=== PATIENT | female | born 1950 | race Hispanic/Latino ===

== ENCOUNTER 2019-08-15 07:35 | Emergency (ER) | payer BC, MEDICARE ==
[2019-08-15] MEDS ORDERED: LORazepam 2 MG/ML VIAL IV ONE (08:21)
--- NOTE | 2019-08-15 08:27 | Emergency Department Report ---
ED Head Trauma HPI - General Chief complaint: Head Injury Stated complaint: HEAD INJURY Time Seen by Provider: 08/15/19 08:07 Source: patient Mode of arrival: Ambulatory Limitations: No Limitations - History of Present Illness Initial comments: Patient is 69 years old female with history of migraine. Patient presented to the ER complaining of headache. Patient stated that she fell and hit the back of her head on her office desk edge. Patient stated that she was reaching to grab something and her chair slide underneath her. Patient stated that she did well initially but few hours later she started having headache, nausea but no vomiting. Patient stated that she examine her pupils and found that it is an equal. She called her neurologist who advised her to not to go to the ER and stay home and do a concussion precaution for 24 hours. Patient stated that she did not feel better and she started having some difficulty keeping her balance s o she did a telehealth and seen by a nurse practitioner who recommended MRI. Patient came today for MRI of the brain. Patient currently rated her pain as 3 out of 10. Patient declined pain medicine offer but she is claustrophobic and is okay with Ativan. Complaint: head injury -: days(s) (13) Location: occipital Loss of Consciousness: no Previous Trauma to this Area: No Place: home Radiation: none Severity scale (0 -10): 3 Consistency: constant Other Injuries: none - Related Data Previous Rx's Medication Instructions Recorded Last Taken Type HYDROcodone/APAP 5-325 [[place] 1 each PO Q6HR PRN #14 tablet 08/15/19 Unknown Rx 5/325] Ondansetron [Zofran Odt] 4 mg PO Q8HR PRN #14 tab.rapdis 08/15/19 Unknown Rx Allergies/Adverse reactions: Allergies Allergy/AdvReac Type Severity Reaction Status Date / Time lamotrigine [From Lamictal] Allergy Hives Verified 08/15/19 07:41 ED Review of Systems ROS: Stated complaint: HEAD INJURY Other details as noted in HPI Comment: All other systems reviewed and negative Constitutional: denies: chills, fever Respiratory: denies: cough, shortness of breath Cardiovascular: denies: chest pain Gastrointestinal: nausea. denies: abdominal pain, vomiting, diarrhea, constipation, hematemesis, melena Musculoskeletal: denies: back pain Neurological: headache. denies: weakness, numbness, paresthesias, confusion, abnormal gait ED Past Medical Hx - Past Medical History Previous Medical History?: Yes Additional medical history: UC - Social History Smoking Status: Never Smoker Substance Use Type: None - Medications Home Medications: Home Medications Medication Instructions Recorded Confirmed Last Taken Type HYDROcodone/APAP 5-325 [[place] 1 each PO Q6HR PRN #14 tablet 08/15/19 Unknown Rx 5/325] Ondansetron [Zofran Odt] 4 mg PO Q8HR PRN #14 tab.rapdis 08/15/19 Unknown Rx ED Physical Exam - General Limitations: No Limitations General appearance: alert, in no apparent distress - Head Head exam: Present: atraumatic, normocephalic, normal inspection - Eye Eye exam: Present: normal appearance, PERRL - ENT ENT exam: Present: normal exam, normal orophraynx, mucous membranes moist - Neck Neck exam: Present: normal inspection, full ROM. Absent: tenderness, meningismus, lymphadenopathy, thyromegaly - Respiratory Respiratory exam: Present: normal lung sounds bilaterally - Cardiovascular Cardiovascular Exam: Present: regular rate, normal rhythm, normal heart sounds - GI/Abdominal GI/Abdominal exam: Present: soft, normal bowel sounds. Absent: distended, tenderness, guarding, rebound, rigid, organomegaly, mass, bruit, pulsatile mass, hernia - Extremities Exam Extremities exam: Present: normal inspection, full ROM, normal capillary refill. Absent: tenderness, pedal edema, calf tenderness - Back Exam Back exam: Present: normal inspection, full ROM. Absent: CVA tenderness (R), CVA tenderness (L), muscle spasm, paraspinal tenderness, vertebral tenderness - Neurological Exam Neurological exam: Present: alert, oriented X3, CN II-XII intact, normal gait, reflexes normal. Absent: abnormal gait, motor sensory deficit - Psychiatric Psychiatric exam: Present: normal mood - Skin Skin exam: Present: warm, intact, normal color ED Course Vital Signs 08/15/19 08/15/19 07:41 09:34 Temperature 97.9 F Pulse Rate 60 Respiratory 16 14 Rate Blood Pressure 150/63 O2 Sat by Pulse 100 96 Oximetry - Lab Data Result diagrams: 08/15/19 08:44 Lab Results 08/15/19 Range/Units 08:44 WBC 3.7 L (4.5-11.0) K/mm3 RBC 4.25 (3.65-5.03) M/mm3 Hgb 12.9 (10.1-14.3) gm/dl Hct 39.2 (30.3-42.9) % MCV 92 (79-97) fl MCH 30 (28-32) pg MCHC 33 (30-34) % RDW 12.6 L (13.2-15.2) % Plt Count 152 (140-440) K/mm3 Lymph % (Auto) 40.1 H (13.4-35.0) % [place] % (Auto) 11.0 H (0.0-7.3) % Eos % (Auto) 0.9 (0.0-4.3) % Baso % (Auto) 0.8 (0.0-1.8) % Lymph # 1.5 (1.2-5.4) K/mm3 [place] # 0.4 (0.0-0.8) K/mm3 Eos # 0.0 (0.0-0.4) K/mm3 Baso # 0.0 (0.0-0.1) K/mm3 Seg Neutrophils % 47.2 (40.0-70.0) % Seg Neutrophils # 1.8 (1.8-7.7) K/mm3 - Radiology Data Radiology results: report reviewed - Medical Decision Making Patient is 69 years old female with history of migraine. Patient presented to the ER complaining of headache. Patient stated that she fell and hit the back of her head on her office desk edge. Patient stated that she was reaching to grab something and her chair slide underneath her. Patient stated that she did well initially but few hours later she started having headache, nausea but no vomiting. Patient stated that she examine her pupils and found that it is an equal. She called her neurologist who advised her to not to go to the ER and stay home and do a concussion precaution for 24 hours. Patient stated that she did not feel better and she started having some difficulty keeping her balance so she did a telehealth and seen by a nurse practitioner who recommended MRI. Patient came today for MRI of the brain. Patient currently rated her pain as 3 out of 10. Patient declined pain medicine offer but she is claustrophobic and is okay with Ativan. Patient remained stable in the ER. MRI of the brain without contrast showed no evidence of acute ischemia, hemorrhage or mass. Patient advised to follow-up with her primary care physician in the next 2 to 3 days. Patient also given a prescription for [place] for headache and advised to return to the ER if she develop any new symptoms. A printout for concussion has been given. Critical care attestation.: If time is entered above; I have spent that time in minutes in the direct care of this critically ill patient, excluding procedure time. ED Disposition Clinical Impression: Head injury, Headache, Concussion Disposition: TO HOME OR SELFCARE Is pt being admited?: No Condition: Stable Instructions: Concussion (ED), Minor Head Injury (ED), Post Concussion Syndrome (ED) Prescriptions: HYDROcodone/APAP 5-325 [[place] 5/325] 1 each PO Q6HR PRN #14 tablet PRN Reason: Pain Ondansetron [Zofran Odt] 4 mg PO Q8HR PRN #14 tab.rapdis PRN Reason: Nausea And Vomiting Referrals: [facility]LO[facility]NABE [Other] - 3-5 Days Forms: Work/School Release Form(ED)
[2019-08-15 09:16] LABS: Basophils % (Auto) 0.8 % (0.0-1.8); Eosinophils % (Auto) 0.9 % (0.0-4.3); Hematocrit 39.2 % (30.3-42.9); Hemoglobin 12.9 gm/dl (10.1-14.3); Lymphocytes # (Auto) 1.5 K/mm3 (1.2-5.4); Lymphocytes % (Auto) 40.1 % (13.4-35.0); Mean Corpuscular HGB Conc 33 % (30-34); Mean Corpuscular Volume 92 fl (79-97); Monocytes # (Auto) 0.4 K/mm3 (0.0-0.8); Platelet Count 152 K/mm3 (140-440); Red Blood Count 4.25 M/mm3 (3.65-5.03); Red Cell Distribution Width 12.6 % (13.2-15.2)
--- NOTE | 2019-08-15 09:45 | Magnetic Resonance Report ---
MRI BRAIN 08/15/2019 INDICATION / CLINICAL INFORMATION: MAIN: head injury, headaches and nausea patient fell trying to grab something and hit head.. TECHNIQUE: Multiplanar, multisequence MR images of the brain were obtained. COMPARISON: None available. FINDINGS: BRAIN / INTRACRANIAL CONTENTS: Unenhanced MR images of the brain demonstrate no evidence of acute int racranial abnormality. Ventricles and sulci are normal in size and shape. Mild chronic subcortical and deep white matter T2 weighted hyperintensities are present in the cerebr al hemispheric white matter. There is no evidence of acute ischemic injury, hemorrhage, or mass. There are no abnormal extra-axial fluid collections. EXTRACRANIAL: Unremarkable CRANIOCERVICAL JUNCTION: No significant abnormality. VASCULAR FLOW-VOIDS: No significant abnormality. IMPRESSION: No acute abnormality. Mild chronic changes. Signer Name: Ozzie Du MD Signed: 08/15/2019 9:40 AM Workstation Name: [id number]
[2019-08-15 10:54] VITALS: BP 129/54
[2019-08-15 11:12] LABS: BUN/Creatinine Ratio 17; Blood Urea Nitrogen 15 mg/dL (7-17); Calcium 9.3 mg/dL (8.4-10.2); Hemolysis Index 3
== END 2019-08-15 11:16 | disposition home or self-care (01) ==
LOC: ED 07:35
DX: S06.0X9A Concussion with loss of consciousness of unspecified duration, initial encounter (principal); Z88.8 Allergy status to other drugs, medicaments and biological substances; Z79.899 Other long term (current) drug therapy; W19.XXXA Unspecified fall, initial encounter; Y93.89 Activity, other specified; Y92.89 Other specified places as the place of occurrence of the external cause; Y99.8 Other external cause status
CPT/HCPCS: 36415; 70551; 80048; 85025; 96374; 99284; J2060